=== PATIENT | female | born 1930 | race Caucasian/White ===

== ENCOUNTER 2016-08-21 21:07 | Inpatient (IN) | payer MEDICARE, OTHER ==
[~2016-08-21] VITALS: Ht 154.9 cm; Wt 42.2 kg
--- NOTE | ~2016-08-21 | DS ---
[place], [place] DISCHARGE SUMMARY NAME: ESTEPHANIE LINDSAY [facility] #: [id number] UNIT #: [id number] ROOM: 427 DOCTOR: JUNG RENAE MD BIRTHDATE: [birth year] DOS: 08/23/2016 DISCHARGE DIAGNOSES: 1. Transient ischemic attack involving numbness of the left upper extremity and gait disturbance, completely resolved. 2. Benign essential hypertension with controlled blood pressures. HOSPITAL COURSE: The patient presented to the Emergency Department with numbness and tingling. No significant weakness in left upper extremity, but she has also had difficulty in walking at home. The patient lives by herself, and she was admitted for TIA, carotid arterial Dopplers showed less than 50% stenosis. The patient is asymptomatic now and being discharged to home to follow up with the PCP on Saturday, where further workup for TIA can be performed, and now she has been kept on aspirin. Suspected to have urinary tract infection but urine cultures were negative. I will stop the antibiotics. Benign essential hypertension. The patient on Norvasc and she has controlled blood pressures. LABORATORY DATA: Carotid arterial Dopplers as mentioned above. Urine culture is negative. 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 DISCHARGE MANAGEMENT: Aspirin 81 mg a day, amlodipine 5 mg a day. Follow with PCP on Saturday and less than a week. JUNG RENAE MD CM:MOOK [id number] JUNG RENAE MD 08/23/161936 interface
--- NOTE | ~2016-08-21 | EKG ---
[place], [place] ELECTROCARDIOGRAM REPORT NAME: ESTEPHANIE LINDSAY UNIT #: [id number] ROOM: 427 DOCTOR: [place] LESLIE,JUNG Coker BIRTHDATE: [birth year] DOS: 08/22/2016 TIME: 22 hours and 4 minutes. EKG shows sinus bradycardia with a heart rate of 59 beats per minute, left axis deviation, right bundle-branch block, nonspecific ST-T abnormality. JUNG RENAE MD CM:EKGRPT:ELECTROCARDIOGRAM REPORT [id number] JUNG RENAE MD
--- NOTE | ~2016-08-21 | WRIGHTHP ---
[place], [place] PATIENT HISTORY AND PHYSICAL EXAM [id number] UNIT #: [id number] ROOM: 427 DOCTOR: JUNG RENAE MD BIRTHDATE: [birth year] DOS: 08/22/2016 HISTORY OF PRESENT ILLNESS: The patient presented to the Emergency Department and was seen by Larissa Hollins and by Dr. Lora with complaints of right arm numbness and tingling starting around 8:30 p.m. yesterday when she was watching the television. She felt off balance and unsteady and walking to the door of her neighbor to take her to the hospital. By the time she presented to the Emergency Department, she was not complaining of any numbness and her gait had become steady. Evaluation in the Emergency Department revealed a urinary tract infection and cystitis. Urine cultures were obtained and she was recommended for admission because she lives by herself and is 86 years old and had issues with unsteady gait. REVIEW OF SYSTEMS: LUNGS: Without shortness of breath or wheezing. GI: No nausea, vomiting, diarrhea, constipation. CARDIOVASCULAR SYSTEM: No chest pain, no palpitations. SOCIAL HISTORY: Lives by herself. Denies smoking cigarettes, alcohol and drug abuse. FAMILY HISTORY: Noncontributory. HOME MEDICATIONS: Amlodipine. ALLERGIES: No known drug allergies. PHYSICAL EXAMINATION: GENERAL: Alert and oriented x 3. Generalized weakness. HEENT AND NECK: Extraocular movements are intact. Sclerae are anicteric. Oral mucosa is moist and clean. No obvious facial weakness. Neck is supple without any lymphadenopathy. No thyromegaly. No JVD. No carotid arterial bruits. LUNGS: Clear to auscultation. No wheezing. No rhonchi. CARDIOVASCULAR SYSTEM: Heart rate is regular in rate and rhythm. S1 and S2 normally audible. No significant murmur or any other abnormal cardiac sounds. ABDOMEN: Soft, nontender. No obvious organomegaly. Bowel sounds are present. No obvious herniation. EXTREMITIES: Without significant cyanosis or edema. Warm to touch. CENTRAL NERVOUS SYSTEM: Alert and oriented x 3. Cranial nerves II-XII are intact. Speech is normal. The patient is able to move all extremities. Normal muscle strength. Deep tendon reflexes are equal on both sides. Plantars were downgoing. LABORATORY DATA: CT of the head without any ischemic changes with a small lacunar infarct in the left thalamus, changes are chronic. BUN and creatinine 26 and 1.1, blood sugar 145 with normal bilirubin, liver enzymes. Hemoglobin 11.6. No leukocytosis. Normal platelets. IMPRESSION: 1. The patient presenting with transient ischemic attack with symptoms of right [place], [place] PATIENT HISTORY AND PHYSICAL EXAM NAME: ESTEPHANIE LINDSAY UNIT #: [id number] ROOM: 427 DOCTOR: JUNG RENAE MD BIRTHDATE: [birth year] arm numbness and tingling and gait disturbance, which had completely resolved before she presented to the Emergency Department. I start her on aspirin 81 mg a day and I will check her carotid arterial Dopplers. 2. Urinary tract infection. Urine cultures are pending and patient is being treated with ciprofloxacin. The patient worked with physical therapy and is doing well, she can be discharged to home as early as tomorrow. The patient is 86 years old, is generally weak and living by herself and relatively a high fall risk, which needs to be evaluated by physical therapy prior to discharging her to home. 3. Benign essential hypertension. The patient on amlodipine. Blood pressures are staying with normal range. JUNG RENAE MD CM:HISPHYS:PATIENT HISTORY AND PHYSICAL EXAMINATION [id number] JUNG RENAE MD 09/25/16 1341 interface
[~2016-08-21 21:07] MED LIST: AMLODIPINE5 MG PO; ANTIBIOTIC O500 U/GM TP; ASPIRIN325 MG PO; ATENOLOL25 MG PO; ATIVAN0.5 MG PO; COLACE100 MG PO; FOSAMAX70 MG PO; HYDROCODONE BIT1 T11 PO; PRAVACHOL40 MG PO
[2016-08-21 21:16] VITALS: BP 155/81
[2016-08-21 21:30] VITALS: BP 151/71
[2016-08-21 21:50] VITALS: BP 127/69
[2016-08-21 22:07] LABS: BASO # 0.1 10*3/uL (0.0-0.1); BASO % 0.7 % (0.0-1.0); EOS # 0.1 10*3/uL (0.0-0.4); EOS % 1.5 % (1.0-4.0); HEMOGLOBIN 11.6 g/dl (12.0-16.0); LYMPH # 1.4 10*3/uL (1.3-4.4); LYMPH % 20.5 % (27.0-41.0); MEAN CELL VOLUME 90.7 fl (81.0-99.0); MEAN CORPUSCULAR HGB 29.2 pg (27.0-31.0); MEAN CORPUSCULAR HGB CONC 32.2 g/dl (33.0-37.0); MEAN PLATELET VOLUME 10.6 fl (9.6-12.3); MONO # 0.7 10*3/uL (0.1-1.0); MONO % 9.9 % (3.0-9.0); NEUT # 4.6 10*3/uL (2.3-7.9); NEUT % 67.1 % (47.0-73.0); PLATELET COUNT AUTOMATED 275 10*3/uL (130-400); RED BLOOD COUNT 3.97 10*6/uL (4.10-5.10); RED CELL DISTRI WIDTH 14.6 % (0-14.5); WHITE BLOOD COUNT 6.9 10*3/uL (4.8-10.8)
[2016-08-21 22:21] LABS: PROTHROMBIN TIME 10.1 SECONDS (9.0-12.4)
[2016-08-21 22:24] LABS: ALBUMIN 3.2 gm/dl (3.1-4.5); BILIRUBIN, TOTAL 0.5 mg/dl (0.2-1.0); CKMB 1.6 ng/ml (0.5-3.6); TOTAL PROTEIN 6.6 gm/dL (6.4-8.2); TROPONIN I 0.027 ng/ml (<0.5)
[2016-08-21 22:57] LABS: BILIRUBIN NEGATIVE (NEGATIVE); BLOOD NEGATIVE (NEGATIVE); CLARITY SL CLOUDY (CLEAR); COLOR YELLOW (YELLOW); GLUCOSE NEGATIVE (NEGATIVE); KETONE NEGATIVE (NEGATIVE); LEUKO ESTERASE 1+ (NEGATIVE); NITRITE NEGATIVE (NEGATIVE); PH 5.5 (5.0-9.0); PROTEIN NEGATIVE (NEGATIVE); SPECIFIC GRAVITY 1.025 (1.005-1.030); UROBILINOGEN 0.2 E.U./dl (0.2-1.0)
[2016-08-21 23:00] VITALS: BP 121/69
[2016-08-21 23:14] LABS: BACTERIA 1+; YEAST TRACE
[2016-08-21 23:15] LABS: URINE REFLEX COMMENT YES (NO)
[2016-08-21 23:43] VITALS: BP 134/71
[2016-08-22 01:15] VITALS: BP 143/70
[2016-08-22] MEDS ORDERED: FOSAMAX70 M1 PO (01:28)
[2016-08-22 07:41] VITALS: BP 140/80
[2016-08-22 16:00] VITALS: BP 138/66
[2016-08-22 20:00] VITALS: BP 138/57
[2016-08-23] VITALS: BP 100/54
[2016-08-23 08:00] VITALS: BP 106/54
[2016-08-23 12:00] VITALS: BP 131/84
[2016-08-23 16:00] VITALS: BP 108/58
[2016-08-23] MEDS ORDERED: ASPIRIN ADULT L81 M1 PO (19:11)
== END 2016-08-23 20:38 | disposition home or self-care (01) | DRG 69 ==
LOC: ED 21:07 → EDHOLD 08-22 00:10 → 4E 08-22 00:10
PROVIDERS: Nurse Practitioner Family
DX: G45.9 Transient cerebral ischemic attack, unspecified (principal); N39.0 Urinary tract infection, site not specified; I10 Essential (primary) hypertension; Z98.890 Other specified postprocedural states; Z80.8 Family history of malignant neoplasm of other organs or systems

== ENCOUNTER 2017-07-04 22:05 | Emergency (ER) | payer MEDICARE ==
[~2017-07-04] VITALS: Ht 170.1 cm; Wt 44.9 kg
[~2017-07-04 22:05] MED LIST changes: +ASPIRIN ADULT L81 M1 PO; +FOSAMAX70 M1 PO
== END 2017-07-05 00:39 | disposition short-term general hospital (02) ==
LOC: ED 22:05
DX: S72.011A Unspecified intracapsular fracture of right femur, initial encounter for closed fracture (principal); Z79.899 Other long term (current) drug therapy; W18.39XA Other fall on same level, initial encounter; Y93.89 Activity, other specified; Y92.89 Other specified places as the place of occurrence of the external cause; Y99.8 Other external cause status